=== PATIENT | female | born 1990 | race Caucasian/White ===

== ENCOUNTER → 2021-01-08 01:24 | Outpatient (CLI) | payer OTHER, SELFPAY | DX: Z02.89 Encounter for other administrative examinations (principal) ==

== ENCOUNTER 2021-01-08 01:52 | Emergency (ER) | payer OTHER, SELFPAY ==
[2021-01-08 01:53] VITALS: BP 136/76; PULSE 107; RESP 16; TEMP 36.6; O2SAT 97; BMI 22.8
--- NOTE | 2021-01-08 02:13 | [facility].EDMCLR ---
ED Disposition Clinical Impression: Medical clearance for incarceration Disposition: Home, Self-Care Condition on Discharge: Good Instructions: DI for Alcohol Use Disorder Additional Instructions: see pcp for follow up Referrals: Provider,Referral, [Primary Care Provider] - - Critical Care Critical Care Time: No Attestation: On 01/08/21, the high probability of a clinically significant, sudden or life threatening deterioration of the following system(s) required my full and direct attention, intervention and personal management. The time I documented below is in addition to time spent performing reported procedures but includes the following listed in this critical care notation. Medical Decision Making - Medical Records Medical records reviewed: Yes: I reviewed the patient's medical records. - Chemo Inquiry Pt receiving controlled substance: No Vital Signs: 01/08/21 01:53 Temperature 97.8 F Temperature Source Oral Pulse Rate [Right] 107 H Respiratory Rate 16 Blood Pressure [Right Arm] 136/76 Blood Pressure Mean [Right Arm] 96 02 Sat by Pulse Oximetry 97 Medical Clearance HPI - General Chief complaint: Medical Clearance Stated complaint: medical clearance Time Seen by Provider: 01/08/21 02:10 Mode of Arrival: Ambulatory Source of Information: Patient, Medical Record Limitations: No Limitations Description of Symptoms (Recalled from ER Triage Doc. by RN): pt here for medical clearence. pt has no c/o - History of Present Illness HPI Narrative: no specific c/o MD complaint: medical clearance requested Traumatic Symptoms: denies traumatic injury Associated Symptoms: denies other symptoms Treatments Prior to Arrival: none [facility] History - Hepatitis A Screen Drug use history?: No High risk sexual behaviors?: No History of sexually transmitted infection?: No Currently employed?: No Childcare worker?: No Do you have indoor plumbing?: Yes Do you have electricity?: Yes Attestation statement:: This patient has been screened for Hepatitis A risk factors. I have reviewed the patient's past medical history: Yes - Social History Alcohol Intake: never Occupational Status: unemployed ROS Obtained: Yes All systems reviewed & no additional complaints - Constitutional Constitutional: Denies fever(s) - Eyes Eyes: Denies change in vision - ENT Ears, Nose, Mouth, and Throat: Denies sore throat - Cardiovascular Cardiovascular: Denies chest pain - Respiratory Respiratory: Denies shortness of breath - Gastrointestinal Gastrointestingal: Denies: vomiting - Genitourinary Female Genitourinary: Denies hematuria - Musculoskeletal Musculoskeletal: Denies joint swelling - Integumentary/Breasts Skin/Breast: Denies rash - Neurologic Neurologic: Denies seizure-like activity Physical Exam - General General appearance: alert - Head Head exam: normocephalic - Eye Eye exam: Present: PERRL, EOMI - ENT ENT exam: Present: mucous membranes moist - Neck Neck exam: Present: trachea midline - Respiratory Respiratory exam: Absent: respiratory distress - Cardiovascular Cardiovascular exam: Present: regular rate - Abdominal Exam Abdominal exam: Present: soft - Extremities Exam Extremities exam: Present: full ROM - Neurological Exam Neurological exam: Present: alert, CN II-XII intact - Skin Skin exam: Absent: rash
[2021-01-08 02:49] VITALS: BP 124/72; PULSE 97; RESP 16; TEMP 36.6; O2SAT 97
== END 2021-01-08 02:51 | disposition home or self-care (01) ==
PROVIDERS: Emergency Provider Emergency Medicine
DX: Z00.8 Encounter for other general examination (principal)
CPT/HCPCS: 99281; 99282